=== PATIENT | male | born 1995 | race Caucasian/White ===

== ENCOUNTER 2016-07-01 11:01 | Emergency (ER) | payer OTHER, MEDICAID ==
[2016-07-01] MEDS ORDERED: KETOROLAC 30 MG/ML VIAL (J1885) As Ordered ONE (11:17)
[2016-07-01 11:38] LABS: BASO % 0.3 % (0.0-1.0); EOS % 0.9 % (0.0-3.0); LARGE UNSTAINED CELL # 0.1 K/mm3 (0.0-0.4); LARGE UNSTAINED CELL % 1.9 % (0.0-4.0); LYMPH % 19.1 % (24.0-44.0); MEAN CORPUSCULAR HEMOGLOBIN 30.2 pg (27.0-33.0); MEAN CORPUSCULAR HGB CONC 35.5 g/dl (32.0-36.5); MONO # 0.2 K/mm3 (0.0-0.8); MONO % 3.6 % (0.0-5.0); NEUTROPHILS % 74.1 % (36.0-66.0); PLATELET COUNT, AUTOMATED 190 k/mm3 (150-450); RED CELL DISTRIBUTION WIDTH 11.9 % (11.5-14.5); WHITE BLOOD COUNT 5.4 K/mm3 (4.0-10.0)
[2016-07-01 12:02] LABS: ALBUMIN 4.1 GM/DL (3.2-5.2); ALBUMIN/GLOBULIN RATIO 1.52 (1.00-1.93); ALKALINE PHOSPHATASE 69 U/L (45-117); ALT/SGPT 21 U/L (12-78); ANION GAP 10 MEQ/L (8-16); AST/SGOT 23 U/L (15-37); BILIRUBIN,DIRECT 0.3 MG/DL (0.0-0.2); BILIRUBIN,TOTAL 1.3 MG/DL (0.2-1.0); BLOOD UREA NITROGEN 7 MG/DL (7-18); CALCIUM LEVEL 8.5 MG/DL (8.5-10.1); CARBON DIOXIDE LEVEL 23 MEQ/L (21-32); CHLORIDE LEVEL 108 MEQ/L (98-107); GLUCOSE, FASTING 96 MG/DL (70-105); POTASSIUM SERUM 3.7 MEQ/L (3.5-5.1); SODIUM LEVEL 141 MEQ/L (136-145); TOTAL PROTEIN 6.8 GM/DL (6.4-8.2)
--- NOTE | 2016-07-01 12:38 | EDDOCDS ---
Nurse's Notes [facility] Name: Jae Gonzalez Age: 20 yrs Sex: Male : 1995 Arrival Date: 07/01/2016 Time: 11:01 Bed I2 / M2 Private MD: Diagnosis: Nausea and vomiting;Diarrhea, unspecified Presentation: 07/01 11:04 Presenting complaint: EMS states: nausea vomiting for the past few days. Patient this hs1 morning reporting dizziness. EMS states new medication also started the last couple of days. EMS has 18 LEFT AC and 4 mg Zofran administered. Adult Sepsis Screening: The patient does not have new or worsening altered mentation. Patient's respiratory rate is less than 22. Systolic blood pressure is greater than 100. Patient has a qSOFA score of 0- Negative Sepsis Screen. Suicide/Homicide risk assessment- the patient denies having any suicidal and/or homicidal ideations and does not present with any other emotional, behavioral or mental health complaints. Status: Patient is not a student services rep or dependent. Transition of care: patient was not received from another setting of care. 11:04 Acuity: ANTONIO Level 3 hs1 11:04 Method Of Arrival: Ambulance hs1 11:09 Care prior to arrival: See EMS report. Medications administered prior to arrival: hs1 Zofran 4 mg. Triage Assessment: 11:08 General: Appears in no apparent distress, Behavior is appropriate for age, cooperative. hs1 Pain: Location: abdomen Pain currently is 5 out of 10 on a pain scale. Neurological: Level of Consciousness is awake, alert, obeys commands. Respiratory: No deficits noted. GI: Reports nausea, vomiting. Derm: Skin is pink, warm & dry. normal. Historical: - Allergies: Unable to obtain; - Home Meds: 1. levetiracetam 500 mg oral tab 0.5 tab daily 2. fluoxetine 20 mg Oral cap 1 cap once daily - PMHx: Depression; Bipolar disorder; - PSHx: none; - Family history: Not pertinent. - : The pt / caregiver states he / she is not on anticoagulants. Home medication list is obtained from pill bottles. - Exposure Risk Screening:: None identified. Screenin:09 Screening information is obtained from the patient. Fall risk: No risks identified. natok Assistance ADL's: requires no assistance with activities of daily living. Abuse/DV Screen: The patient / caregiver reports he/she is: not in a situation that causes fear, pain or injury. Nutritional screening: No deficits noted. Advance Directives: Currently, there is no health care proxy. There is no active DNR order. There is no living will. There is no Power of Skidder Loader. Advance directive information has not previously been placed in an [facility] medical record. home support is adequate. Assessment: 11:09 General: Appears ambulance arrival. skin warm and dry. color satisfactory. Moist pink jmk oral mucosa. Indicates diffuse bilateral abd pain. states 5/10 discomfort with minimal increase with palpation. + flat affect. states food attempt with pop tart ingestion this AM. states loose stool x 1 last PM.. Respiratory: No deficits noted. Airway is patent Respiratory effort is even, unlabored, Respiratory pattern is. GI: Bowel sounds present X 4 quads. Abd is soft X 4 quads Abd is tender to palpation in right upper quadrant, left upper quadrant, right lower quadrant and left lower quadrant. GI: Abdomen is flat, non- distended. 12:34 General: Appears reluctantly admits that pain and nausea have lessened. stressed clear jmk liquid diet with small frequent amounts. receptive to discharge. Vital Signs: 11:09 BP 129 / 68; Pulse 77; Resp 18; Temp 99.6(TE); Pulse Ox 98% on R/A; Weight 72.57 kg jrd (R); Height 5 ft. 4 in. (162.56 cm); Pain 6/10; 12:26 BP 122 / 55; Pulse 78; Resp 16; Temp 99.7(TE); Pulse Ox 98% ; Pain 4/10; jrd 11:09 Body Mass Index 27.46 (72.57 kg, 162.56 cm) jrd ED Course: 11:03 Patient visited by Siobhan Nguyen, Resource Conservation Specialist. lbd 11:03 Patient moved to Waiting lbd 11:05 Patient moved to I2 / M2 lbd 11:06 Triage Initiated hs1 11:07 Alistair Ellison PA-C is PHCP. cc10 11:07 Hugo Yousif MD is Attending Physician. cc10 11:09 The patient / caregiver is instructed regarding the plan of care and ED course. natok 11:09 Maintain field IV. Gauge & site: 18 left ac space.. jmk 11:10 Patient visited by Arnaud Cam PCA. jrd 11:13 Patient visited by Alistair Ellison PA-C. cc10 11:13 Patient visited by Alistair Ellison PA-C. cc10 11:25 Patient visited by Avril Sales RN. ead 11:25 Basic Metabolic Profile Sent. ead 11:25 CBC with Diff Sent. ead 11:25 Lipase Sent. ead 11:25 Liver Profile Sent. ead 12:26 Patient visited by Arnaud Cam PCA. jrd 12:34 Discontinued lock intact, bleeding controlled, pressure dressing applied, No jmk redness/swelling at site. No procedures done that require assistance. Administered Medications: 11:16 Drug: NS 0.9% 1000 ml Route: IV; Rate: bolus; Site: left antecubital; k 12:36 Follow up: IV Status: Completed infusion; IV Intake: 1000ml k 11:19 Drug: ketorolac 30 mg [ketorolac 30 mg/mL (1 mL) injection solution (1 mL)] Route: IVP; [facility] Site: left antecubital; 12:36 Follow up: Response: Pain is decreased k Intake: 12:36 IV: 1000.00ml; Total: 1000.00ml. [facility] Order Results: Lab Order: Basic Metabolic Profile; SPEC'M 07/01/16 11:23 Test: GLUCOSE, FASTING; Value: 96; Range: 70-105; Units: MG/DL; Status: F Test: BLOOD UREA NITROGEN; Value: 7; Range: 7-18; Units: MG/DL; Status: F Test: CREATININE FOR GFR; Value: 1.00; Range: 0.70-1.30; Units: MG/DL; Status: F Test: SODIUM LEVEL; Value: 141; Range: 136-145; Units: MEQ/L; Status: F Test: POTASSIUM SERUM; Value: 3.7; Range: 3.5-5.1; Units: MEQ/L; Status: F Test: CHLORIDE LEVEL; Value: 108; Range: 98-107; Abnormal: Above high normal; Units: MEQ/L; Status: F Test: CARBON DIOXIDE LEVEL; Value: 23; Range: 21-32; Units: MEQ/L; Status: F Test: ANION GAP; Value: 10; Range: 8-16; Units: MEQ/L; Status: F Test: CALCIUM LEVEL; Value: 8.5; Range: 8.5-10.1; Units: MG/DL; Status: F Lab Order: CBC with Diff; SPEC'M 07/01/16 11:23 Test: WHITE BLOOD COUNT; Value: 5.4; Range: 4.0-10.0; Units: K/mm3; Status: F Test: RED BLOOD COUNT; Value: 4.75; Range: 4.30-6.10; Units: M/mm3; Status: F Test: HEMOGLOBIN; Value: 14.3; Range: 14.0-18.0; Units: g/dl; Status: F Test: HEMATOCRIT; Value: 40.3; Range: 42.0-52.0; Abnormal: Below low normal; Units: %; Status: F Test: MEAN CORPUSCULAR VOLUME; Value: 85.0; Range: 80.0-96.0; Units: fl; Status: F Test: MEAN CORPUSCULAR HEMOGLOBIN; Value: 30.2; Range: 27.0-33.0; Units: pg; Status: F Test: MEAN CORPUSCULAR HGB CONC; Value: 35.5; Range: 32.0-36.5; Units: g/dl; Status: F Test: RED CELL DISTRIBUTION WIDTH; Value: 11.9; Range: 11.5-14.5; Units: %; Status: F Test: PLATELET COUNT, AUTOMATED; Value: 190; Range: 150-450; Units: k/mm3; Status: F Test: NEUTROPHILS %; Value: 74.1; Range: 36.0-66.0; Abnormal: Above high normal; Units: %; Status: F Test: LYMPH %; Value: 19.1; Range: 24.0-44.0; Abnormal: Below low normal; Units: %; Status: F Test: MONO %; Value: 3.6; Range: 0.0-5.0; Units: %; Status: F Test: EOS %; Value: 0.9; Range: 0.0-3.0; Units: %; Status: F Test: BASO %; Value: 0.3; Range: 0.0-1.0; Units: %; Status: F Test: LARGE UNSTAINED CELL %; Value: 1.9; Range: 0.0-4.0; Units: %; Status: F Test: NEUTROPHILS #; Value: 4.0; Range: 1.8-7.7; Units: K/mm3; Status: F Test: LYMPH #; Value: 1.0; Range: 1.5-6.5; Abnormal: Below low normal; Units: K/mm3; Status: F Test: MONO #; Value: 0.2; Range: 0.0-0.8; Units: K/mm3; Status: F Test: EOS #; Value: 0.0; Range: 0.0-0.50; Units: K/mm3; Status: F Test: BASO #; Value: 0.0; Range: 0.0-0.2; Units: K/mm3; Status: F Test: LARGE UNSTAINED CELL #; Value: 0.1; Range: 0.0-0.4; Units: K/mm3; Status: F Lab Order: Lipase; SPEC'M 07/01/16 11:23 Test: LIPASE; Value: 43; Range: 73-393; Abnormal: Below low normal; Units: U/L; Status: F Lab Order: Liver Profile; SPEC'M 07/01/16 11:23 Test: AST/SGOT; Value: 23; Range: 15-37; Units: U/L; Status: F Test: ALT/SGPT; Value: 21; Range: 12-78; Units: U/L; Status: F Test: ALKALINE PHOSPHATASE; Value: 69; Range: 45-117; Units: U/L; Status: F Test: BILIRUBIN,TOTAL; Value: 1.3; Range: 0.2-1.0; Abnormal: Above high normal; Units: MG/DL; Status: F Test: BILIRUBIN,DIRECT; Value: 0.3; Range: 0.0-0.2; Abnormal: Above high normal; Units: MG/DL; Status: F Test: TOTAL PROTEIN; Value: 6.8; Range: 6.4-8.2; Units: GM/DL; Status: F Test: ALBUMIN; Value: 4.1; Range: 3.2-5.2; Units: GM/DL; Status: F Test: ALBUMIN/GLOBULIN RATIO; Value: 1.52; Range: 1.00-1.93; Status: F Outcome: 12:16 Discharge ordered by Provider. cc10 12:36 Discharge Assessment: Patient awake, alert and oriented x 3. No cognitive and/or jmk functional deficits noted. Patient verbalized understanding of disposition instructions. patient administered narcotics - no. The following High Risk Discharge criteria are identified: None. Discharged to home ambulatory. Condition: good. Discharge instructions given to patient. No special radiology studies were completed. Property :Personal belongings accompany Pt. 12:37 Patient left the ED. [facility] Signatures: Siobhan Nguyen, Resource Conservation Specialist Unit lbd Rudy JackRN RN Teresa Perez RN RN hs1 Avril Sales,RN RN Alistair Denny, PA-Darnell PA-Darnell cc10 Arnaud Cam, EFRAIN NEUROPSYCHOLOGY MEDICAL CONSULTANT jrelsie MTDD
--- NOTE | 2016-07-01 12:38 | EDDOCDS ---
Physician Documentation [facility] Name: Jae Gonzalez Age: 20 yrs Sex: Male : 1995 Arrival Date: 07/01/2016 Time: 11:01 Bed I2 / M2 Private MD: Disposition: 07/01/16 12:16 Discharged to Home/Self Care. Impression: Nausea and vomiting, Diarrhea, unspecified. - Condition is Stable. - Discharge Instructions: Food Choices to Help Relieve Diarrhea, Adult, Viral Gastroenteritis. - Prescriptions for ZOFRAN ODT 4 mg - dissolve 1 tablet by ORAL route 4 times per day As needed do not chew, do not swallow whole; 10 tablet. - Medication Reconciliation form. - Follow up: Emergency Department; When: As needed; Reason: Worsening of conditions. Follow up: Private Physician; When: Call to arrange an appointment; Reason: Wound/Symptom Recheck, Recheck today's complaints, Worsening of conditions, Continuance of care. - Problem is an ongoing problem. - Symptoms have improved. Historical: - Allergies: Unable to obtain; - Home Meds: 1. levetiracetam 500 mg oral tab 0.5 tab daily 2. fluoxetine 20 mg Oral cap 1 cap once daily - PMHx: Depression; Bipolar disorder; - PSHx: none; - Family history: Not pertinent. - : The pt / caregiver states he / she is not on anticoagulants. Home medication list is obtained from pill bottles. - Exposure Risk Screening:: None identified. Vital Signs: 07/01 11:09 BP 129 / 68; Pulse 77; Resp 18; Temp 99.6(TE); Pulse Ox 98% on R/A; Weight 72.57 kg / jrd 159.99 lbs (R); Height 5 ft. 4 in. (162.56 cm); Pain 6/10; 12:26 BP 122 / 55; Pulse 78; Resp 16; Temp 99.7(TE); Pulse Ox 98% ; Pain 4/10; jrd 11:09 Body Mass Index 27.46 (72.57 kg, 162.56 cm) jrd MDM: 11:14 NS 0.9% 1000 ml IV at bolus once ordered. cc10 11:14 Ondansetron 4 mg IVP once ordered. cc10 11:14 ketorolac 30 mg IVP once ordered. cc10 11:14 IV Saline Lock ordered. cc10 11:14 Undress patient appropriately for examination ordered. cc10 11:15 Basic Metabolic Profile Ordered. EDMS 11:15 CBC with Diff Ordered. EDMS 11:15 Lipase Ordered. EDMS 11:15 Liver Profile Ordered. EDMS 11:15 Urinalysis Ordered. EDMS 11:15 NOTHING BY MOUTH+DIET ordered. EDMS 11:39 Financial registration complete. mm15 12:12 Basic Metabolic Profile Reviewed. cc10 12:12 CBC with Diff Reviewed. cc10 12:12 Lipase Reviewed. cc10 12:12 Liver Profile Reviewed. cc10 Administered Medications: 11:16 Drug: NS 0.9% 1000 ml Route: IV; Rate: bolus; Site: left antecubital; [facility] 12:36 Follow up: IV Status: Completed infusion; IV Intake: 1000ml [facility] 11:19 Drug: ketorolac 30 mg [ketorolac 30 mg/mL (1 mL) injection solution (1 mL)] Route: IVP; [facility] Site: left antecubital; 12:36 Follow up: Response: Pain is decreased [facility] Signatures: Dispatcher [employer] EDRudy Rice,RN RN Teresa Gannon RN RN hs1 Aryan Turcios mm15 Alistair Ellison PA-C PAMoses cc10 MTDD
--- NOTE | 2016-07-03 13:38 | EDDOCDS ---
Nurse's Notes [facility] Name: Jae Gonzalez Age: 20 yrs Sex: Male : 1995 Arrival Date: 07/01/2016 Time: 11:01 Bed I2 / M2 Private MD: Diagnosis: Nausea and vomiting;Diarrhea, unspecified Presentation: 07/01 11:04 Presenting complaint: EMS states: nausea vomiting for the past few days. Patient this hs1 morning reporting dizziness. EMS states new medication also started the last couple of days. EMS has 18 LEFT AC and 4 mg Zofran administered. Adult Sepsis Screening: The patient does not have new or worsening altered mentation. Patient's respiratory rate is less than 22. Systolic blood pressure is greater than 100. Patient has a qSOFA score of 0- Negative Sepsis Screen. Suicide/Homicide risk assessment- the patient denies having any suicidal and/or homicidal ideations and does not present with any other emotional, behavioral or mental health complaints. Status: Patient is not a servicenow administrator developer or dependent. Transition of care: patient was not received from another setting of care. 11:04 Acuity: ANTONIO Level 3 hs1 11:04 Method Of Arrival: Ambulance hs1 11:09 Care prior to arrival: See EMS report. Medications administered prior to arrival: hs1 Zofran 4 mg. Triage Assessment: 11:08 General: Appears in no apparent distress, Behavior is appropriate for age, cooperative. hs1 Pain: Location: abdomen Pain currently is 5 out of 10 on a pain scale. Neurological: Level of Consciousness is awake, alert, obeys commands. Respiratory: No deficits noted. GI: Reports nausea, vomiting. Derm: Skin is pink, warm & dry. normal. Historical: - Allergies: Unable to obtain; - Home Meds: 1. levetiracetam 500 mg oral tab 0.5 tab daily 2. fluoxetine 20 mg Oral cap 1 cap once daily - PMHx: Depression; Bipolar disorder; - PSHx: none; - Family history: Not pertinent. - : The pt / caregiver states he / she is not on anticoagulants. Home medication list is obtained from pill bottles. - Exposure Risk Screening:: None identified. Screenin:09 Screening information is obtained from the patient. Fall risk: No risks identified. natok Assistance ADL's: requires no assistance with activities of daily living. Abuse/DV Screen: The patient / caregiver reports he/she is: not in a situation that causes fear, pain or injury. Nutritional screening: No deficits noted. Advance Directives: Currently, there is no health care proxy. There is no active DNR order. There is no living will. There is no Power of Landscape Horticulture Instructor. Advance directive information has not previously been placed in an [facility] medical record. home support is adequate. Assessment: 11:09 General: Appears ambulance arrival. skin warm and dry. color satisfactory. Moist pink jmk oral mucosa. Indicates diffuse bilateral abd pain. states 5/10 discomfort with minimal increase with palpation. + flat affect. states food attempt with pop tart ingestion this AM. states loose stool x 1 last PM.. Respiratory: No deficits noted. Airway is patent Respiratory effort is even, unlabored, Respiratory pattern is. GI: Bowel sounds present X 4 quads. Abd is soft X 4 quads Abd is tender to palpation in right upper quadrant, left upper quadrant, right lower quadrant and left lower quadrant. GI: Abdomen is flat, non- distended. 12:34 General: Appears reluctantly admits that pain and nausea have lessened. stressed clear jmk liquid diet with small frequent amounts. receptive to discharge. Vital Signs: 11:09 BP 129 / 68; Pulse 77; Resp 18; Temp 99.6(TE); Pulse Ox 98% on R/A; Weight 72.57 kg jrd (R); Height 5 ft. 4 in. (162.56 cm); Pain 6/10; 12:26 BP 122 / 55; Pulse 78; Resp 16; Temp 99.7(TE); Pulse Ox 98% ; Pain 4/10; jrd 11:09 Body Mass Index 27.46 (72.57 kg, 162.56 cm) jrd ED Course: 11:03 Patient visited by Siobhan Nguyen, Glassware Selector. lbd 11:03 Patient moved to Waiting lbd 11:05 Patient moved to I2 / M2 lbd 11:06 Triage Initiated hs1 11:07 Alistair Ellison PA-C is PHCP. cc10 11:07 Hugo Yousif MD is Attending Physician. cc10 11:09 The patient / caregiver is instructed regarding the plan of care and ED course. natok 11:09 Maintain field IV. Gauge & site: 18 left ac space.. jmk 11:10 Patient visited by Arnaud Cam PCA. jrd 11:13 Patient visited by Alistair Ellison PA-C. cc10 11:13 Patient visited by Alistair Ellison PA-C. cc10 11:25 Patient visited by Avril Sales RN. ead 11:25 Basic Metabolic Profile Sent. ead 11:25 CBC with Diff Sent. ead 11:25 Lipase Sent. ead 11:25 Liver Profile Sent. ead 12:26 Patient visited by Arnaud Cam PCA. jrd 12:34 Discontinued lock intact, bleeding controlled, pressure dressing applied, No jmk redness/swelling at site. No procedures done that require assistance. 14:04 T-Sheet-- Draft Copy was scanned into [employer] and attached to record. gb 14:05 PCR was scanned into [employer] and attached to record. gb 15:23 [facility] Payment Agreement was scanned into [employer] and attached to record. mm15 Administered Medications: 11:16 Drug: NS 0.9% 1000 ml Route: IV; Rate: bolus; Site: left antecubital; [facility] 12:36 Follow up: IV Status: Completed infusion; IV Intake: 1000ml [facility] 11:19 Drug: ketorolac 30 mg [ketorolac 30 mg/mL (1 mL) injection solution (1 mL)] Route: IVP; [facility] Site: left antecubital; 12:36 Follow up: Response: Pain is decreased [facility] Intake: 12:36 IV: 1000.00ml; Total: 1000.00ml. [facility] Order Results: Lab Order: Basic Metabolic Profile; SPEC'M 07/01/16 11:23 Test: GLUCOSE, FASTING; Value: 96; Range: 70-105; Units: MG/DL; Status: F Test: BLOOD UREA NITROGEN; Value: 7; Range: 7-18; Units: MG/DL; Status: F Test: CREATININE FOR GFR; Value: 1.00; Range: 0.70-1.30; Units: MG/DL; Status: F Test: SODIUM LEVEL; Value: 141; Range: 136-145; Units: MEQ/L; Status: F Test: POTASSIUM SERUM; Value: 3.7; Range: 3.5-5.1; Units: MEQ/L; Status: F Test: CHLORIDE LEVEL; Value: 108; Range: 98-107; Abnormal: Above high normal; Units: MEQ/L; Status: F Test: CARBON DIOXIDE LEVEL; Value: 23; Range: 21-32; Units: MEQ/L; Status: F Test: ANION GAP; Value: 10; Range: 8-16; Units: MEQ/L; Status: F Test: CALCIUM LEVEL; Value: 8.5; Range: 8.5-10.1; Units: MG/DL; Status: F Lab Order: CBC with Diff; SPEC'M 07/01/16 11:23 Test: WHITE BLOOD COUNT; Value: 5.4; Range: 4.0-10.0; Units: K/mm3; Status: F Test: RED BLOOD COUNT; Value: 4.75; Range: 4.30-6.10; Units: M/mm3; Status: F Test: HEMOGLOBIN; Value: 14.3; Range: 14.0-18.0; Units: g/dl; Status: F Test: HEMATOCRIT; Value: 40.3; Range: 42.0-52.0; Abnormal: Below low normal; Units: %; Status: F Test: MEAN CORPUSCULAR VOLUME; Value: 85.0; Range: 80.0-96.0; Units: fl; Status: F Test: MEAN CORPUSCULAR HEMOGLOBIN; Value: 30.2; Range: 27.0-33.0; Units: pg; Status: F Test: MEAN CORPUSCULAR HGB CONC; Value: 35.5; Range: 32.0-36.5; Units: g/dl; Status: F Test: RED CELL DISTRIBUTION WIDTH; Value: 11.9; Range: 11.5-14.5; Units: %; Status: F Test: PLATELET COUNT, AUTOMATED; Value: 190; Range: 150-450; Units: k/mm3; Status: F Test: NEUTROPHILS %; Value: 74.1; Range: 36.0-66.0; Abnormal: Above high normal; Units: %; Status: F Test: LYMPH %; Value: 19.1; Range: 24.0-44.0; Abnormal: Below low normal; Units: %; Status: F Test: MONO %; Value: 3.6; Range: 0.0-5.0; Units: %; Status: F Test: EOS %; Value: 0.9; Range: 0.0-3.0; Units: %; Status: F Test: BASO %; Value: 0.3; Range: 0.0-1.0; Units: %; Status: F Test: LARGE UNSTAINED CELL %; Value: 1.9; Range: 0.0-4.0; Units: %; Status: F Test: NEUTROPHILS #; Value: 4.0; Range: 1.8-7.7; Units: K/mm3; Status: F Test: LYMPH #; Value: 1.0; Range: 1.5-6.5; Abnormal: Below low normal; Units: K/mm3; Status: F Test: MONO #; Value: 0.2; Range: 0.0-0.8; Units: K/mm3; Status: F Test: EOS #; Value: 0.0; Range: 0.0-0.50; Units: K/mm3; Status: F Test: BASO #; Value: 0.0; Range: 0.0-0.2; Units: K/mm3; Status: F Test: LARGE UNSTAINED CELL #; Value: 0.1; Range: 0.0-0.4; Units: K/mm3; Status: F Lab Order: Lipase; SPEC'M 07/01/16 11:23 Test: LIPASE; Value: 43; Range: 73-393; Abnormal: Below low normal; Units: U/L; Status: F Lab Order: Liver Profile; SPEC'M 07/01/16 11:23 Test: AST/SGOT; Value: 23; Range: 15-37; Units: U/L; Status: F Test: ALT/SGPT; Value: 21; Range: 12-78; Units: U/L; Status: F Test: ALKALINE PHOSPHATASE; Value: 69; Range: 45-117; Units: U/L; Status: F Test: BILIRUBIN,TOTAL; Value: 1.3; Range: 0.2-1.0; Abnormal: Above high normal; Units: MG/DL; Status: F Test: BILIRUBIN,DIRECT; Value: 0.3; Range: 0.0-0.2; Abnormal: Above high normal; Units: MG/DL; Status: F Test: TOTAL PROTEIN; Value: 6.8; Range: 6.4-8.2; Units: GM/DL; Status: F Test: ALBUMIN; Value: 4.1; Range: 3.2-5.2; Units: GM/DL; Status: F Test: ALBUMIN/GLOBULIN RATIO; Value: 1.52; Range: 1.00-1.93; Status: F Outcome: 12:16 Discharge ordered by Provider. cc10 12:36 Discharge Assessment: Patient awake, alert and oriented x 3. No cognitive and/or k functional deficits noted. Patient verbalized understanding of disposition instructions. patient administered narcotics - no. The following High Risk Discharge criteria are identified: None. Discharged to home ambulatory. Condition: good. Discharge instructions given to patient. No special radiology studies were completed. Property :Personal belongings accompany Pt. 12:37 Patient left the ED. [facility] Signatures: Siobhan Nguyen, Glassware Selector Unit lbd Rudy Jack,RN RN Brenda Bray, Reg Reg Teresa Jordan RN RN hs1 Aryan Turcios mm15 Avril Sales,ANNEMARIE RN Alistair Denny, PA-C PA-C cc10 Arnaud Cam, EFRAIN STRATEGIC PROCUREMENT MANAGER jrd Chart Complete MTDD
--- NOTE | 2016-07-03 13:38 | EDDOCDS ---
Physician Documentation [facility] Name: Jae Gonzalez Age: 20 yrs Sex: Male : 1995 Arrival Date: 07/01/2016 Time: 11:01 Bed I2 / M2 Private MD: Disposition: 07/01/16 12:16 Discharged to Home/Self Care. Impression: Nausea and vomiting, Diarrhea, unspecified. - Condition is Stable. - Discharge Instructions: Food Choices to Help Relieve Diarrhea, Adult, Viral Gastroenteritis. - Prescriptions for ZOFRAN ODT 4 mg - dissolve 1 tablet by ORAL route 4 times per day As needed do not chew, do not swallow whole; 10 tablet. - Medication Reconciliation form. - Follow up: Emergency Department; When: As needed; Reason: Worsening of conditions. Follow up: Private Physician; When: Call to arrange an appointment; Reason: Wound/Symptom Recheck, Recheck today's complaints, Worsening of conditions, Continuance of care. - Problem is an ongoing problem. - Symptoms have improved. Historical: - Allergies: Unable to obtain; - Home Meds: 1. levetiracetam 500 mg oral tab 0.5 tab daily 2. fluoxetine 20 mg Oral cap 1 cap once daily - PMHx: Depression; Bipolar disorder; - PSHx: none; - Family history: Not pertinent. - : The pt / caregiver states he / she is not on anticoagulants. Home medication list is obtained from pill bottles. - Exposure Risk Screening:: None identified. Vital Signs: 07/01 11:09 BP 129 / 68; Pulse 77; Resp 18; Temp 99.6(TE); Pulse Ox 98% on R/A; Weight 72.57 kg / jrd 159.99 lbs (R); Height 5 ft. 4 in. (162.56 cm); Pain 6/10; 12:26 BP 122 / 55; Pulse 78; Resp 16; Temp 99.7(TE); Pulse Ox 98% ; Pain 4/10; jrd 11:09 Body Mass Index 27.46 (72.57 kg, 162.56 cm) jrd MDM: 11:14 NS 0.9% 1000 ml IV at bolus once ordered. cc10 11:14 Ondansetron 4 mg IVP once ordered. cc10 11:14 ketorolac 30 mg IVP once ordered. cc10 11:14 IV Saline Lock ordered. cc10 11:14 Undress patient appropriately for examination ordered. cc10 11:15 Basic Metabolic Profile Ordered. EDMS 11:15 CBC with Diff Ordered. EDMS 11:15 Lipase Ordered. EDMS 11:15 Liver Profile Ordered. EDMS 11:15 Urinalysis Ordered. EDMS 11:15 NOTHING BY MOUTH+DIET ordered. EDMS 11:39 Financial registration complete. mm15 12:12 Basic Metabolic Profile Reviewed. cc10 12:12 CBC with Diff Reviewed. cc10 12:12 Lipase Reviewed. cc10 12:12 Liver Profile Reviewed. cc10 14:04 T-Sheet-- Draft Copy was scanned into [employer] and attached to record. gb 14:05 PCR was scanned into [employer] and attached to record. 15:23 [facility] Payment Agreement was scanned into [employer] and attached to record. mm15 Administered Medications: 11:16 Drug: NS 0.9% 1000 ml Route: IV; Rate: bolus; Site: left antecubital; [facility] 12:36 Follow up: IV Status: Completed infusion; IV Intake: 1000ml [facility] 11:19 Drug: ketorolac 30 mg [ketorolac 30 mg/mL (1 mL) injection solution (1 mL)] Route: IVP; [facility] Site: left antecubital; 12:36 Follow up: Response: Pain is decreased [facility] Signatures: Dispatcher [employer] Rudy Carbajal,RN RN k Brenda Cohen, Reg Reg Teresa Scherer RN RN hs1 Aryan Turcios mm15 Alistair Ellison PA-C PA-C cc10 The chart was reviewed and I authenticate all verbal orders and agree with the evaluation and treatment provided.Attachments: 14:04 T-Sheet-- Draft Copy gb 15:23 [facility] Payment Agreement mm15 Chart Complete MTDD
--- NOTE | 2016-07-03 13:38 | EDDOCDS ---
Physician Documentation [facility] Name: Jae Gonzalez Age: 20 yrs Sex: Male : 1995 Arrival Date: 07/01/2016 Time: 11:01 Bed I2 / M2 Private MD: Disposition: 07/01/16 12:16 Discharged to Home/Self Care. Impression: Nausea and vomiting, Diarrhea, unspecified. - Condition is Stable. - Discharge Instructions: Food Choices to Help Relieve Diarrhea, Adult, Viral Gastroenteritis. - Prescriptions for ZOFRAN ODT 4 mg - dissolve 1 tablet by ORAL route 4 times per day As needed do not chew, do not swallow whole; 10 tablet. - Medication Reconciliation form. - Follow up: Emergency Department; When: As needed; Reason: Worsening of conditions. Follow up: Private Physician; When: Call to arrange an appointment; Reason: Wound/Symptom Recheck, Recheck today's complaints, Worsening of conditions, Continuance of care. - Problem is an ongoing problem. - Symptoms have improved. Historical: - Allergies: Unable to obtain; - Home Meds: 1. levetiracetam 500 mg oral tab 0.5 tab daily 2. fluoxetine 20 mg Oral cap 1 cap once daily - PMHx: Depression; Bipolar disorder; - PSHx: none; - Family history: Not pertinent. - : The pt / caregiver states he / she is not on anticoagulants. Home medication list is obtained from pill bottles. - Exposure Risk Screening:: None identified. Vital Signs: 07/01 11:09 BP 129 / 68; Pulse 77; Resp 18; Temp 99.6(TE); Pulse Ox 98% on R/A; Weight 72.57 kg / jrd 159.99 lbs (R); Height 5 ft. 4 in. (162.56 cm); Pain 6/10; 12:26 BP 122 / 55; Pulse 78; Resp 16; Temp 99.7(TE); Pulse Ox 98% ; Pain 4/10; jrd 11:09 Body Mass Index 27.46 (72.57 kg, 162.56 cm) jrd MDM: 11:14 NS 0.9% 1000 ml IV at bolus once ordered. cc10 11:14 Ondansetron 4 mg IVP once ordered. cc10 11:14 ketorolac 30 mg IVP once ordered. cc10 11:14 IV Saline Lock ordered. cc10 11:14 Undress patient appropriately for examination ordered. cc10 11:15 Basic Metabolic Profile Ordered. EDMS 11:15 CBC with Diff Ordered. EDMS 11:15 Lipase Ordered. EDMS 11:15 Liver Profile Ordered. EDMS 11:15 Urinalysis Ordered. EDMS 11:15 NOTHING BY MOUTH+DIET ordered. EDMS 11:39 Financial registration complete. mm15 12:12 Basic Metabolic Profile Reviewed. cc10 12:12 CBC with Diff Reviewed. cc10 12:12 Lipase Reviewed. cc10 12:12 Liver Profile Reviewed. cc10 14:04 T-Sheet-- Draft Copy was scanned into [employer] and attached to record. gb 14:05 PCR was scanned into [employer] and attached to record. 15:23 [facility] Payment Agreement was scanned into [employer] and attached to record. mm15 Administered Medications: 11:16 Drug: NS 0.9% 1000 ml Route: IV; Rate: bolus; Site: left antecubital; [facility] 12:36 Follow up: IV Status: Completed infusion; IV Intake: 1000ml [facility] 11:19 Drug: ketorolac 30 mg [ketorolac 30 mg/mL (1 mL) injection solution (1 mL)] Route: IVP; [facility] Site: left antecubital; 12:36 Follow up: Response: Pain is decreased [facility] Signatures: Dispatcher [employer] Rudy Carbajal,RN RN k Brenda Cohen, Reg Reg Teresa Scherer RN RN hs1 Aryan Tucrios mm15 Alistair Ellison PA-C PA-C cc10 The chart was reviewed and I authenticate all verbal orders and agree with the evaluation and treatment provided.Attachments: 14:04 T-Sheet-- Draft Copy gb 15:23 [facility] Payment Agreement mm15 Chart Complete MTDD
== END 2016-07-01 12:37 | disposition home or self-care (01) ==
LOC: M ED 11:01
DX: R11.2 Nausea with vomiting, unspecified (principal); R19.7 Diarrhea, unspecified; F31.9 Bipolar disorder, unspecified; Z79.899 Other long term (current) drug therapy
CPT/HCPCS: 80048; 80076; 83690; 85025; 96361; 96374; 99283; J1885

== ENCOUNTER 2016-08-28 08:45 | Emergency (ER) | payer OTHER, MEDICAID ==
[~2016-08-28] VITALS: Ht 167.6 cm; Wt 72.6 kg
[2016-08-28] MEDS ORDERED: KETOROLAC 30 MG/ML VIAL (J1885) IV ONE (09:30)
[2016-08-28 09:57] LABS: BASO % 0.4 % (0.0-1.0); EOS # 0.1 K/mm3 (0.0-0.50); EOS % 1.1 % (0.0-3.0); LARGE UNSTAINED CELL # 0.1 K/mm3 (0.0-0.4); LARGE UNSTAINED CELL % 2.5 % (0.0-4.0); MEAN CORPUSCULAR HEMOGLOBIN 30.5 pg (27.0-33.0); MEAN CORPUSCULAR HGB CONC 34.9 g/dl (32.0-36.5); MEAN CORPUSCULAR VOLUME 87.4 fl (80.0-96.0); MONO # 0.4 K/mm3 (0.0-0.8); MONO % 7.5 % (0.0-5.0); NEUTROPHILS # 4.1 K/mm3 (1.8-7.7); NEUTROPHILS % 72.4 % (36.0-66.0); PLATELET COUNT, AUTOMATED 173 k/mm3 (150-450); RED CELL DISTRIBUTION WIDTH 11.9 % (11.5-14.5); WHITE BLOOD COUNT 5.7 K/mm3 (4.0-10.0)
[2016-08-28 10:03] LABS: ANION GAP 11 MEQ/L (8-16); BLOOD UREA NITROGEN 8 MG/DL (7-18); CALCIUM LEVEL 8.6 MG/DL (8.5-10.1); CARBON DIOXIDE LEVEL 25 MEQ/L (21-32); CHLORIDE LEVEL 107 MEQ/L (98-107); CREATININE FOR GFR 0.85 MG/DL (0.70-1.30); GLOMERULAR FILTRATION RATE > 60.0 (>60); GLUCOSE, FASTING 108 MG/DL (70-105); POTASSIUM SERUM 3.7 MEQ/L (3.5-5.1); SODIUM LEVEL 143 MEQ/L (136-145)
[2016-08-28 10:23] LABS: MICROSCOPIC INDICATED? MAN YES (NO)
[2016-08-28 10:36] LABS: RBC, URINE TNTC /hpf (0-3); WBC, URINE TNTC /hpf (0-3)
[2016-08-28 10:37] LABS: SQUAMOUS EPITHELIAL CELL URINE SMALL AMOUNT /hpf (SMALL AMT); TRANSITIONAL EPI CELLS, URINE SMALL AMOUNT /hpf
[2016-08-28 10:38] LABS: BACTERIA, URINE MOD AMOUNT; HYALINE CAST, URINE NONE SEEN /lpf (0-1)
[2016-08-28 10:39] LABS: MICROSCOPIC EXAM PERFORMED
--- NOTE | 2016-08-28 12:29 | REP ---
CT ABDOMEN PELVIS WITHOUT CONTRAST: 08/28/2016 CLINICAL HISTORY: Right renal colic. TECHNIQUE: Noncontrast images with coronal and sagittal reconstructions provided. FINDINGS: No prior study. CT ABDOMEN: Lung bases are clear. Heart is not enlarged. There is no pericardial thickening or effusion. I see no hiatal hernia. There is no hepatosplenomegaly, focal hepatic or splenic lesion, intra or extrahepatic mass or biliary dilatation. Gallbladder contracted without calcified stone or mass. Pancreas unremarkable. Adrenal glands are normal. Spleen without focal lesion. Bilateral kidneys show no stones within. Minimal hydronephrosis on the right and hydroureter to the level of the superior aspect of the L4 vertebral body with a 3 mm stone in the right ureter at that point. Below this the ureter is another stone at the UVJ or in the bladder wall of the collapsed bladder. This is best seen on image 111 and is 5 mm. I do not see left hydronephrosis, hydroureter or stone. The aorta is normal. No periaortic or retroperitoneal pathologic sized lymphadenopathy. Lung window review of all CT slices shows no perforation or free air. The abdominal wall shows no ventral hernia. Bone windows show bilateral spondylolysis of L5 without spondylolisthesis. No compression deformity is noted in the lumbar lower thoracic spine. Visualized ribs are intact. CT PELVIS: Bony hips, pelvis, sacrum, SI joints are unremarkable. Bladder nearly completely empty with the 5 mm stone at the UVJ or at the bladder wall of the empty bladder on the right side only. Left side unremarkable. Prostate calcifications of the left. No pelvic lymphadenopathy. The colon within the abdomen pelvis is grossly intact. Small bowel loops unremarkable. No ascites or free air. No ventral or inguinal hernia. IMPRESSION: 1. There is a 5 mm stone at the bladder wall on the right or UPJ in this collapsed bladder with hydroureter. A second stone is seen in the more proximal ureter at about the superior endplate of L4 measuring 3 mm. 2. No other renal, ureteral or bladder stone. Minimal right hydronephrosis. 3. Bilateral L5 spondylolysis without spondylolisthesis. Signed by Valerio Sylvester MD 08/28/2016 05:02 P
[2016-08-28] MEDS ORDERED: PERC5TAB6 PO (12:46)
[2016-08-28] MEDS ORDERED: ZOFR4TAB3 PO (12:46)
[2016-08-28 13:03] VITALS: BP 120/67
== END 2016-08-28 13:04 | disposition home or self-care (01) ==
LOC: EDBD 08:45 → M ED 10:07
DX: N20.1 Calculus of ureter (principal)
CPT/HCPCS: 74176; 80048; 81000; 81015; 85025; 93041; 96374; 99285; J1885

== ENCOUNTER 2016-12-27 00:16 | Emergency (ER) | payer OTHER, MEDICAID ==
[~2016-12-27] VITALS: Ht 165.1 cm; Wt 67.3 kg
[~2016-12-27 00:16] MED LIST: PERC5TAB12 PO; ZOFR4TAB3 PO
[2016-12-27] MEDS ORDERED: CLIN150C14 PO (03:14)
[2016-12-27] MEDS ORDERED: CLINDAMYCIN 150 MG CAP PO ONE (03:15)
[2016-12-27] MEDS ORDERED: ACETAMINOPH W/CODEINE #3 TAB UD PO ONE (03:15)
[2016-12-27 03:19] VITALS: BP 118/77
== END 2016-12-27 03:20 | disposition home or self-care (01) ==
LOC: M ED 00:16
DX: S30.860A Insect bite (nonvenomous) of lower back and pelvis, initial encounter (principal); R23.4 Changes in skin texture; W57.XXXA Bitten or stung by nonvenomous insect and other nonvenomous arthropods, initial encounter; Y92.9 Unspecified place or not applicable; Y93.9 Activity, unspecified; Y99.9 Unspecified external cause status; F17.200 Nicotine dependence, unspecified, uncomplicated; Z88.0 Allergy status to penicillin

== ENCOUNTER 2017-08-29 16:53 | Emergency (ER) | payer OTHER, MEDICAID ==
[2017-08-29] MEDS: ONDANSETRON 4 MG ORAL DISINTEGRATING TAB (S0181) PO (19:30)
== END 2017-08-29 19:53 | disposition home or self-care (01) ==
LOC: M ED 16:53
DX: K29.70 Gastritis, unspecified, without bleeding (principal); Z87.442 Personal history of urinary calculi; M43.16 Spondylolisthesis, lumbar region; Z88.0 Allergy status to penicillin
CPT/HCPCS: 74176

== ENCOUNTER 2022-09-03 08:24 | Emergency (ER) | payer OTHER ==
[~2022-09-03] VITALS: Ht 170.2 cm; Wt 74.0 kg
[~2022-09-03 08:24] MED LIST changes: +CLIN150C17 PO; +ZANT300T9 PO; +ZOFR4TAB14 PO; -ZOFR4TAB3 PO
[2022-09-03] MEDS ORDERED: IBUP-1720 (08:32)
[2022-09-03] MEDS ORDERED: ACET300T48 (08:32)
[2022-09-03] MEDS ORDERED: ONDANSETRON 4MG 2ML VIAL IV ONE (12:00)
[2022-09-03] MEDS ORDERED: NS 1,000 ML IV ONE (12:00)
[2022-09-03] MEDS ORDERED: KETOROLAC 30 MG/ML 1ML VIAL IV ONE (12:00)
[2022-09-03] MEDS ORDERED: ISOVUE-370 76% 100ML VIAL As Ordered ONE (12:35)
[2022-09-03 12:47] LABS: BASO # 0.1 10^3/uL (0.0-0.2); BASO % 1.3 % (0.0-1.0); EOS # 0.3 10^3/uL (0.0-0.5); EOS % 5.2 % (0.0-3.0); HEMATOCRIT 42.8 % (42.0-52.0); HEMOGLOBIN 14.7 g/dl (13.5-17.5); LYMPH # 1.9 10^3/uL (1.5-5.0); LYMPH % 30.5 % (24.0-44.0); MEAN CORPUSCULAR HEMOGLOBIN 30.1 pg (27.0-33.0); MEAN CORPUSCULAR HGB CONC 34.3 g/dl (32.0-36.5); MEAN CORPUSCULAR VOLUME 87.7 fl (80.0-96.0); MONO # 0.5 10^3/uL (0.0-0.8); MONO % 7.2 % (2.0-8.0); NEUTROPHILS # 3.5 10^3/uL (1.5-8.5); NEUTROPHILS % 55.5 % (36.0-66.0); PLATELET COUNT, AUTOMATED 230 10^3/uL (150-450); RED BLOOD COUNT 4.88 10^6/uL (4.30-6.10); WHITE BLOOD COUNT 6.3 10^3/uL (4.0-10.0)
[2022-09-03 13:09] LABS: CK-MB VALUE MASS < 1.0 NG/ML (<3.6)
[2022-09-03 13:24] LABS: CPK CREATINE PHOSPHOKINASE 272 U/L (46-171); MB/CK RELATIVE INDEX 0.36 (< OR =4)
[2022-09-03] MEDS ORDERED: IBUP-1022 PO (14:44)
[2022-09-03 15:21] VITALS: BP 122/63
== END 2022-09-03 20:07 | disposition home or self-care (01) ==
LOC: M ED 08:24
DX: R07.89 Other chest pain (principal); R74.8 Abnormal levels of other serum enzymes; Z87.442 Personal history of urinary calculi; N28.1 Cyst of kidney, acquired; Z88.0 Allergy status to penicillin
CPT/HCPCS: 71046; 71275; 80047; 82550; 82553; 85025; 93005; 96361; 96374; 96375; 99284; J1885; J2405; Q9967